=== PATIENT | male | born 1995 | race Asian ===

== ENCOUNTER 2019-03-20 23:31 | Emergency (ER) | payer SELFPAY ==
[2019-03-20] MEDS ORDERED: LIDOCAINE 2% MPF 5 ML VIAL ONE (23:44)
[2019-03-20] MEDS ORDERED: LIDOCAINE 1% MPF 5 ML VIAL ONE (23:45)
[2019-03-20] MEDS ORDERED: DOXYCYCLINE 100 MG CAP PO ONE (23:57)
[2019-03-20] MEDS ORDERED: TETANUS & DIPHTHERIA TOX,ADULT 0.5 ML VIAL ONE (23:57)
--- NOTE | 2019-03-21 00:20 | EDPHYS ---
Physician Documentation [facility] Name: Gumaro Wolf Age: 23 yrs Sex: Male : 1995 Arrival Date: 03/20/2019 Time: 23:34 Bed 5 Private MD: ED Physician Robby Hawley HPI: 03/21 00:21 This 23 yrs old Male presents to ER via Ambulatory with complaints of Laceration To kb Hand. 00:21 The patient has a laceration related to: falling from a standing position, occurred [place], and there are no complicating factors. The laceration(s) is(are) located on the inner aspect of left palm. Onset: The symptoms/episode began/occurred just prior to arrival. Associated signs and symptoms: The patient has no apparent associated signs or symptoms. The patient has not experienced similar symptoms in the past. The patient has not recently seen a physician. Pt reports [place], [place] and fell causing laceration to left hand. Historical: - Allergies: 03/20 23:48 No Known Allergies; fc - Home Meds: 23:48 None [Active]; fc - PMHx: 23:48 None; fc - PSHx: 23:48 None; fc - Immunization history:: Last tetanus immunization: unknown. - Social history:: Smoking status: Patient/guardian denies using tobacco, Patient uses alcohol, occasionally. Patient/guardian denies using street drugs. - Ebola Screening: : Patient negative for fever greater than or equal to 101.5 degrees Fahrenheit, and additional compatible Ebola Virus Disease symptoms Patient denies exposure to infectious person Patient denies travel to an Ebola-affected area in the 21 days before illness onset. ROS: 03/21 00:20 Constitutional: Negative for fever, chills, and weight loss, Cardiovascular: Negative kb for chest pain, palpitations, and edema, Respiratory: Negative for shortness of breath, cough, wheezing, and pleuritic chest pain, Abdomen/GI: Negative for abdominal pain, nausea, vomiting, diarrhea, and constipation, MS/Extremity: Negative for injury and deformity, Neuro: Negative for headache, weakness, numbness, tingling, and seizure. Skin: Positive for laceration(s), of the inner aspect of left palm. Exam: 00:20 Constitutional: This is a well developed, well nourished patient who is awake, alert, kb and in no acute distress. Head/Face: Normocephalic, atraumatic. Chest/axilla: Normal chest wall appearance and motion. Nontender with no deformity. No lesions are appreciated. Cardiovascular: Regular rate and rhythm with a normal S1 and S2. No gallops, murmurs, or rubs. Normal PMI, no JVD. No pulse deficits. Respiratory: Lungs have equal breath sounds bilaterally, clear to auscultation and percussion. No rales, rhonchi or wheezes noted. No increased work of breathing, no retractions or nasal flaring. Abdomen/GI: Soft, non-tender, with normal bowel sounds. No distension or tympany. No guarding or rebound. No evidence of tenderness throughout. MS/ Extremity: Pulses equal, no cyanosis. Neurovascular intact. Full, normal range of motion. Neuro: Awake and alert, GCS 15, oriented to person, place, time, and situation. Cranial nerves II-XII grossly intact. Motor strength 5/5 in all extremities. Sensory grossly intact. Cerebellar exam normal. Normal gait. 00:20 Skin: injury, laceration(s), the wound is approximately 5 cm(s), of the inner aspect of left palm, that can be described as clean, no foreign body, linear, without bleeding. Vital Signs: 03/20 23:44 BP 120 / 72; Pulse 77; Resp 18; Temp 99.0(O); Pulse Ox 98% on R/A; Weight 64.41 kg (R); fc Height 5 ft. 9 in. (175.26 cm) (R); Pain 5/10; 03/21 00:22 BP 127 / 80; Pulse 76; Resp 16; Temp 98.9; Pulse Ox 98% on R/A; Pain 3/10; ak1 03/20 23:44 Body Mass Index 20.97 (64.41 kg, 175.26 cm) fc Laceration: 00:18 Wound Repair of 5cm ( 2.0in ) subcutaneous laceration to inner aspect of left palm. kb Linear shaped.. Distal neuro/vascular/tendon intact. Anesthesia: Wound infiltrated with 5 mls of 1% lidocaine. Wound prep: Extensive cleansing with hibiclenz by me, Wound irrigation with saline by me. Skin closed with 10 5-0 Prolene using simple sutures and sterile technique. Dressed with Neosporin, non-adherent dressing. Patient tolerated well. MDM: 03/20 23:42 Patient medically screened. kb 03/21 00:18 Data reviewed: vital signs, nurses notes. Data interpreted: Pulse oximetry: on room air kb is 98 %. Interpretation: normal. Counseling: I had a detailed discussion with the patient and/or guardian regarding: the historical points, exam findings, and any diagnostic results supporting the discharge/admit diagnosis, the need for outpatient follow up, a family practitioner, to return to the emergency department if symptoms worsen or persist or if there are any questions or concerns that arise at home. 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 Exp: ak1 11/09/2020. Lot #: [id number]. } Route: IM; Site: right deltoid; 00:28 Follow up: Response: No adverse reaction ak1 00:03 Drug: Doxycycline 100 mg Route: PO; ak1 00:28 Follow up: Response: No adverse reaction ak1 Disposition: 03/21/19 00:19 Discharged to Home. Impression: Laceration without foreign body of left hand. - Condition is Stable. - Discharge Instructions: Laceration Care, Adult, [id number]. - Prescriptions for Doxycycline Hyclate 100 mg Oral Tablet - take 1 tablet by ORAL route every 12 hours; 20 tablet. - Medication Reconciliation Form, Thank You Letter, Antibiotic Education, Prescription Opioid Use form. - Follow up: Emergency Department; When: As needed; Reason: Worsening of condition. Follow up: Private Physician; When: 2 - 3 days; Reason: Recheck today's complaints, Continuance of care, Re-evaluation by your physician. Signatures: Krissy Leahy, JED-C SHEET METAL TECHNICIAN-Abena Raphael, RN RN Aida Soto RN RN ak1 Corrections: (The following items were deleted from the chart) 00:27 00:19 03/21/2019 00:19 Discharged to Home. Impression: Laceration without foreign body ak1 of left hand. Condition is Stable. Forms are Medication Reconciliation Form, Thank You Letter, Antibiotic Education, Prescription Opioid Use. Follow up: Emergency Department; When: As needed; Reason: Worsening of condition. Follow up: Private Physician; When: 2 - 3 days; Reason: Recheck today's complaints, Continuance of care, Re-evaluation by your physician. kb
--- NOTE | 2019-03-21 00:20 | ER ---
Nurse's Notes [facility] Name: Gumaro Wolf Age: 23 yrs Sex: Male : 1995 Arrival Date: 03/20/2019 Time: 23:34 Bed 5 Private MD: Diagnosis: Laceration without foreign body of left hand Presentation: 03/20 23:44 Presenting complaint: Patient states: that he was walking at the beach and slipped on a rock. Now has laceration to the palm of left hand. Also has scrap to left forearm. Transition of care: patient was not received from another setting of care. Complicating Factors: There are no complicating factors for this patient. Onset of symptoms was March 20, 2019 at 22:30. Risk Assessment: Do you want to hurt yourself or someone else? Patient reports no desire to harm self or others. Initial Sepsis Screen: Does the patient meet any 2 criteria? No. Patient's initial sepsis screen is negative. Does the patient have a suspected source of infection? No. Patient's initial sepsis screen is negative. Care prior to arrival: Bleeding of injury controlled. 23:44 Method Of Arrival: Ambulatory 23:44 Acuity: YESICA 4 fc Historical: - Allergies: 23:48 No Known Allergies; fc - Home Meds: 23:48 None [Active]; fc - PMHx: 23:48 None; fc - PSHx: 23:48 None; fc - Immunization history:: Last tetanus immunization: unknown. - Social history:: Smoking status: Patient/guardian denies using tobacco, Patient uses alcohol, occasionally. Patient/guardian denies using street drugs. - Ebola Screening: : Patient negative for fever greater than or equal to 101.5 degrees Fahrenheit, and additional compatible Ebola Virus Disease symptoms Patient denies exposure to infectious person Patient denies travel to an Ebola-affected area in the 21 days before illness onset. Screenin:48 Abuse screen: Denies threats or abuse. Nutritional screening: No deficits noted. fc Tuberculosis screening: No symptoms or risk factors identified. Fall Risk None identified. Assessment: 23:51 General: Appears in no apparent distress. Behavior is calm, cooperative. Pain: ak1 Complains of pain in palm of left hand and inner aspect of left palm. Neuro: No deficits noted. Cardiovascular: No deficits noted. Respiratory: No deficits noted. GI: No signs and/or symptoms were reported involving the gastrointestinal system. : No signs and/or symptoms were reported regarding the genitourinary system. EENT: No signs and/or symptoms were reported regarding the EENT system. Derm: Wound noted palm of left hand and inner aspect of left palm Wound is laceration s/p slip and trip on rocks at the beach while fishing. no bleeding present. Musculoskeletal: Range of motion: intact in all extremities. Injury Description: Laceration sustained to palm of left hand and inner aspect of left palm is clean, contaminated, 0.5 to 2.5 cm long, not bleeding, is bleeding no active bleeding noted. Vital Signs: 23:44 BP 120 / 72; Pulse 77; Resp 18; Temp 99.0(O); Pulse Ox 98% on R/A; Weight 64.41 kg (R); fc Height 5 ft. 9 in. (175.26 cm) (R); Pain 5/10; 03/21 00:22 BP 127 / 80; Pulse 76; Resp 16; Temp 98.9; Pulse Ox 98% on R/A; Pain 3/10; ak1 03/20 23:44 Body Mass Index 20.97 (64.41 kg, 175.26 cm) ED Course: 03/20 23:34 Patient arrived in ED. ds1 23:39 Aida Draper, RN is Primary Nurse. ak1 23:42 Krissy Leahy FNP-C [facility]. kb 23:42 Robby Hawley MD is Attending Physician. kb 23:44 Arm band placed on Patient placed in an exam room, on a stretcher. fc 23:47 Triage completed. fc 23:48 Patient has correct armband on for positive identification. Bed in low position. Call light in reach. Pulse ox on. NIBP on. 23:53 Assist provider with laceration repair on left hand and palm of left hand using ak1 sutures. Set up tray. Performed by Krissy LICEA. 03/21 00:22 Patient did not have IV access during this emergency room visit. 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 Exp: ak1 11/09/2020. Lot #: [id number]. } Route: IM; Site: right deltoid; 00:28 Follow up: Response: No adverse reaction ak1 00:03 Drug: Doxycycline 100 mg Route: PO; ak1 00:28 Follow up: Response: No adverse reaction ak1 Outcome: 00:19 Discharge ordered by MD. qiu 00:22 Discharged to home ambulatory. ak1 00:22 Condition: stable 00:22 Discharge instructions given to patient, Instructed on discharge instructions, follow up and referral plans. medication usage, wound care, Demonstrated understanding of instructions, follow-up care, medications, Prescriptions given X 1. 00:27 Patient left the ED. ak1 Signatures: Krissy Leahy, ANUJA ADKINS-Abena Raphael RN Dorys Fontanez ds1 Aida Draper RN RN ak1
== END 2019-03-21 00:27 | disposition home or self-care (01) ==
LOC: ER 23:31
PROC: 0JQK0ZZ Repair Left Hand Subcutaneous Tissue and Fascia, Open Approach (ICD-10-PCS; principal; 2019-03-20)
DX: S61.412A Laceration without foreign body of left hand, initial encounter (principal); W01.0XXA Fall on same level from slipping, tripping and stumbling without subsequent striking against object, initial encounter; Y93.01 Activity, walking, marching and hiking; Y92.832 Beach as the place of occurrence of the external cause
CPT/HCPCS: 90471; 90714; 99284

== ENCOUNTER 2019-03-31 21:58 | Emergency (ER) | payer SELFPAY ==
--- NOTE | 2019-03-31 22:37 | ER ---
Nurse's Notes [facility] Name: Eb Wolf Age: 23 yrs Sex: Male : 1995 Arrival Date: 03/31/2019 Time: 22:08 Bed 12 Private MD: Diagnosis: Encounter for removal of sutures Presentation: 03/31 22:21 Presenting complaint: Patient states: here for suture removal from left hand. bb Transition of care: patient was not received from another setting of care. Onset of symptoms was March 20, 2019. Risk Assessment: Do you want to hurt yourself or someone else? Patient reports no desire to harm self or others. Initial Sepsis Screen: Does the patient meet any 2 criteria? No. Patient's initial sepsis screen is negative. Does the patient have a suspected source of infection? No. Patient's initial sepsis screen is negative. Care prior to arrival: None. 22:21 Method Of Arrival: Ambulatory bb 22:21 Acuity: YESICA 5 bb Triage Assessment: 22:22 General: Appears in no apparent distress. Behavior is calm, cooperative. Pain: Denies bb pain. Cardiovascular: No deficits noted. Respiratory: Respiratory effort is even, unlabored, Respiratory pattern is regular. GI: No deficits noted. No signs and/or symptoms were reported involving the gastrointestinal system. Derm: Skin is pink, warm \T\ dry. sutures to left hand well approximated, well healed. Musculoskeletal: Circulation, motion, and sensation intact. Historical: - Allergies: 22:22 No Known Allergies; bb - Home Meds: 22:22 None [Active]; bb - PMHx: 22:22 None; bb - PSHx: 22:22 None; bb - Immunization history:: Adult Immunizations up to date. - Social history:: Smoking status: . - Ebola Screening: : No symptoms or risks identified at this time. Screenin:48 Abuse screen: Denies threats or abuse. Nutritional screening: No deficits noted. bb Tuberculosis screening: No symptoms or risk factors identified. Fall Risk None identified. Assessment: 22:47 Reassessment: pt discharged from triage. bb Vital Signs: 22:22 BP 121 / 68; Pulse 58; Resp 16 S; Temp 98.5(O); Pulse Ox 97% on R/A; Weight 65.32 kg bb (R); Height 5 ft. 9 in. (175.26 cm) (R); Pain 0/10; 22:22 Body Mass Index 21.26 (65.32 kg, 175.26 cm) ismael ED Course: 22:08 Patient arrived in ED. am2 22:22 Triage completed. bb 22:22 Arm band placed on Patient pt waiting in triage for suture removal. bb 22:29 Isac Alston NP is PHCP. pm1 22:29 Miguelangel Knutson MD is Attending Physician. pm1 22:47 Agnieszka Malcolm RN is Primary Nurse. bb 22:48 Patient has correct armband on for positive identification. bb 22:48 Patient did not have IV access during this emergency room visit. bb 22:48 No provider procedures requiring assistance completed. bb Administered Medications: No medications were administered Outcome: 22:36 Discharge ordered by . pm1 22:48 Discharged to home ambulatory. bb 22:48 Condition: stable 22:48 Discharge instructions given to patient, Instructed on discharge instructions, follow up and referral plans. 22:49 Patient left the ED. bb Signatures: Agnieszka Malcolm, ЮЛИЯ RN bb Isac Alston NP DIRECTOR OF SEARCH ENGINE OPTIMIZATION pm1 Lianna Acevedo am2
--- NOTE | 2019-03-31 22:37 | EDPHYS ---
Physician Documentation [facility] Name: Eb Wolf Age: 23 yrs Sex: Male : 1995 Arrival Date: 03/31/2019 Time: 22:08 Bed 12 Private MD: ED Physician Miguelangel Knutson HPI: 03/31 22:36 This 23 yrs old Male presents to ER via Ambulatory with complaints of Suture pm1 Removal. 22:36 The patient has sutures on the left hand. Previous treatment: The patient was initially pm1 treated 10 day(s) ago, the care was rendered at [facility], Treatment type: The patient's original treatment included sutures. Sutures/viktoria progress: The patient has no c/o's. The wound is well-healing with no redness, swelling, discharge, or dehiscence reported. The patient has not experienced similar symptoms in the past. The patient has not recently seen a physician. Historical: - Allergies: 22:22 No Known Allergies; bb - Home Meds: 22:22 None [Active]; bb - PMHx: 22:22 None; bb - PSHx: 22:22 None; bb - Immunization history:: Adult Immunizations up to date. - Social history:: Smoking status: . - Ebola Screening: : No symptoms or risks identified at this time. ROS: 22:36 Constitutional: Negative for fever, chills, and weight loss, Eyes: Negative for injury, pm1 pain, redness, and discharge, ENT: Negative for injury, pain, and discharge, Neck: Negative for injury, pain, and swelling, Cardiovascular: Negative for chest pain, palpitations, and edema, Respiratory: Negative for shortness of breath, cough, wheezing, and pleuritic chest pain, Abdomen/GI: Negative for abdominal pain, nausea, vomiting, diarrhea, and constipation, Back: Negative for injury and pain. 22:36 MS/Extremity: Negative for injury and deformity. 22:36 Skin: Negative for injury, rash, and discoloration, Neuro: Negative for headache, weakness, numbness, tingling, and seizure. Exam: 22:36 Constitutional: This is a well developed, well nourished patient who is awake, alert, pm1 and in no acute distress. Head/Face: Normocephalic, atraumatic. Chest/axilla: Normal chest wall appearance and motion. Nontender with no deformity. No lesions are appreciated. Cardiovascular: Regular rate and rhythm with a normal S1 and S2. No gallops, murmurs, or rubs. Normal PMI, no JVD. No pulse deficits. Respiratory: Lungs have equal breath sounds bilaterally, clear to auscultation and percussion. No rales, rhonchi or wheezes noted. No increased work of breathing, no retractions or nasal flaring. Back: No spinal tenderness. No costovertebral tenderness. Full range of motion. 22:36 MS/ Extremity: Pulses equal, no cyanosis. Neurovascular intact. Full, normal range of motion. 22:36 Skin: Appearance: normal except for affected area, Wound recheck: Suture laceration closure: the wound is healing well, the edges are well approximated, no evidence of dehiscence, no drainage, no erythema, no swelling. 22:36 Neuro: Orientation: is normal, Motor: is normal, moves all fours, Sensation: is normal, no obvious gross deficits. Vital Signs: 22:22 BP 121 / 68; Pulse 58; Resp 16 S; Temp 98.5(O); Pulse Ox 97% on R/A; Weight 65.32 kg bb (R); Height 5 ft. 9 in. (175.26 cm) (R); Pain 0/10; 22:22 Body Mass Index 21.26 (65.32 kg, 175.26 cm) bb Procedures: 22:36 Suture/Staple removal: Removed 10 sutures, from left hand, site appears well healed, pm1 Patient tolerated well. MDM: 22:34 Patient medically screened. pm1 22:36 Data reviewed: vital signs. Data interpreted: Pulse oximetry: on room air is 97 %. pm1 Interpretation: normal. Counseling: I had a detailed discussion with the patient and/or guardian regarding: the historical points, exam findings, and any diagnostic results supporting the discharge/admit diagnosis, the need for outpatient follow up, to return to the emergency department if symptoms worsen or persist or if there are any questions or concerns that arise at home. Administered Medications: No medications were administered Disposition: 04/01 02:45 Co-signature as Attending Physician, Miguelangel Knutson MD I agree with the assessment and tw4 plan of care. Disposition: 03/31/19 22:36 Discharged to Home. Impression: Encounter for removal of sutures. - Condition is Stable. - Discharge Instructions: Suture Removal, Care After. - Medication Reconciliation Form, Thank You Letter, Antibiotic Education, Prescription Opioid Use form. - Follow up: Emergency Department; When: As needed; Reason: Worsening of condition. Follow up: Private Physician; When: As needed; Reason: Recheck today's complaints, Continuance of care, Re-evaluation by your physician. - Problem is new. - Symptoms have improved. Signatures: Agnieszka Malcolm RN RN bb Isac Alston INTAKE ASSESSOR INTAKE ASSESSOR pm1 Miguelangel Knutson MD MD tw4 Corrections: (The following items were deleted from the chart) 03/31 22:48 22:36 03/31/2019 22:36 Discharged to Home. Impression: Encounter for removal of bb sutures. Condition is Stable. Forms are Medication Reconciliation Form, Thank You Letter, Antibiotic Education, Prescription Opioid Use. Follow up: Emergency Department; When: As needed; Reason: Worsening of condition. Follow up: Private Physician; When: As needed; Reason: Recheck today's complaints, Continuance of care, Re-evaluation by your physician. Problem is new. Symptoms have improved. pm1
== END 2019-03-31 22:48 | disposition home or self-care (01) ==
LOC: ER 21:58
DX: Z48.02 Encounter for removal of sutures (principal)
CPT/HCPCS: 99281